=== PATIENT | female | born 1970 | race Caucasian/White ===

== ENCOUNTER 2021-02-14 08:12 | Day surgery (SDC) | payer MEDICAID ==
[~2021-02-14] VITALS: Ht 170.2 cm; Wt 100.0 kg
[2021-02-14 08:10] VITALS: BP 143/81
[~2021-02-14 08:12] MED LIST: ARIP400S3 IM; MIDAZolam 1 MG/ML 5ML VIAL ONE; PALI234D IM; TEMA30CA5 PO; fentaNYL/PF 50MCG/1 ML 2ML syringe ONE
[2021-02-14] MEDS ORDERED: LORA10TA7 PO (08:15)
[2021-02-14] MEDS ORDERED: MULT-1085 PO (08:16)
[2021-02-14] MEDS ORDERED: CLOZ100T21 PO (08:18)
[2021-02-14] MEDS ORDERED: DOCU250C16 PO (08:21)
[2021-02-14] MEDS ORDERED: CITA20TA27 PO (08:23)
[2021-02-14] MEDS ORDERED: OXYB5TAB16 PO (08:23)
[2021-02-14] MEDS ORDERED: AZEL6DRO5 EACHEYE (08:27)
[2021-02-14] MEDS ORDERED: IBUP-1984 PO (08:29)
[2021-02-14] MEDS ORDERED: ACET-2119 PO (08:29)
[2021-02-14] MEDS ORDERED: CALC500T11 PO (08:30)
[2021-02-14] MEDS ORDERED: HYDR-3686 PO (08:31)
[2021-02-14] MEDS ORDERED: POLY17PO59 PO (08:32)
[2021-02-14] MEDS ORDERED: FAMO-128 PO (08:33)
[2021-02-14 10:04] VITALS: BP 143/72
[2021-02-14 10:14] VITALS: BP 138/71
[2021-02-14 10:24] VITALS: BP 135/85
[2021-02-14 10:34] VITALS: BP 146/73
== END 2021-02-14 10:50 | disposition home or self-care (01) ==
LOC: GI LAB 08:12
PROVIDERS: ATTEND Internal Medicine Gastroenterology
DX: R19.5 Other fecal abnormalities (principal); K63.89 Other specified diseases of intestine; K56.2 Volvulus; K64.8 Other hemorrhoids; K63.5 Polyp of colon; K62.1 Rectal polyp; F17.210 Nicotine dependence, cigarettes, uncomplicated; Z79.899 Other long term (current) drug therapy; Z80.0 Family history of malignant neoplasm of digestive organs
CPT/HCPCS: 45380; 45385; 99152; 99153; C1773; J2250; J3010; J7040; Z7512; A4620

== ENCOUNTER 2023-02-15 04:23 | Emergency (ER) | payer MEDICAID ==
[~2023-02-15] VITALS: Ht 170.2 cm; Wt 71.4 kg
[~2023-02-15 04:23] MED LIST changes: +ACET-1084 PO; +ALBU17AE26 PO; -ARIP400S3 IM; +ATOR40TA72 PO; +CALC500T12 PO; +CHOL20003 PO; +CITA20TA27 PO; +CLOZ200T8 PO; +CLOZ50TA9 PO; +DEC4T PO; +DOCU100C40 PO; +FAMO-128 PO; +HYDR-3686 PO; +IBUP-1984 PO; +LISI10TA27 PO; +LORA10TA7 PO; -MIDAZolam 1 MG/ML 5ML VIAL ONE; +OXYB5TAB16 PO; -PALI234D IM; +POLY510P31 PO; -TEMA30CA5 PO; -fentaNYL/PF 50MCG/1 ML 2ML syringe ONE
--- NOTE | 2023-02-15 06:08 | NUR ---
CALL PLACED TO [facility] WHERE PT STATES SHE LIVES. STAFF MEMBER AT [facility] STATES THAT SHE IS THE ONLY STAFF MEMBER ON SITE AND THAT SHE DOESN'T KNOW HOW THE PATIENT CAN GET HOME. CALL PLACED TO [facility], [facility] DOES NOT HAVE AN EXISTING RELATIONSHIP WITH EITHER THE PATIENT OR THE FACILITY. PER [facility] STAFF MEMBER, THERE WOULD BE SOMEONE TO HELP PATIENT INTO THE HOUSE IF [facility] SENDS HER HOME BY CAB. THIS RN REQUESTED THAT THE STAFF MEMBER CONTACT HER INSTRUMENT SPECIALIST TO FIND OUT WHAT PROCEDURE IS FOR SENDING PATIENTS HOME FROM THE HOSPITAL.
[2023-02-15 06:12] LABS: ALANINE AMINOTRANSFERASE 322 U/L (12-78); ALBUMIN 2.6 G/DL (3.4-5.0); ALBUMIN/GLOBULIN RATIO 0.8 (1.1-1.5); ALKALINE PHOSPHATASE 328 IU/L (46-116); ANION GAP 13 (8-16); ASPARTATE AMINO TRANSFERASE 211 U/L (10-37); BILIRUBIN,TOTAL 1.6 MG/DL (0.1-1.0); BLOOD UREA NITROGEN 44 MG/DL (7-18); BUN/CREATININE RATIO 33.1 (10.0-20.0); CALCIUM 9.8 MG/DL (8.5-10.1); CHLORIDE 100 MMOL/L (99-107); CREATININE 1.33 MG/DL (0.40-0.90); GLUCOSE 94 MG/DL (70-104); POTASSIUM 4.8 MMOL/L (3.5-5.1); SODIUM 135 MMOL/L (135-145); TOTAL CARBON DIOXIDE 22.4 MMOL/L (24-32); eCRCL 48 ML/MIN; eGFR 42 ML/MIN
--- NOTE | 2023-02-15 06:12 | NUR ---
SPOKE WITH STAFF AT [facility] AGA[facility]. THEY STATE THAT THEY WILL HAVE SOMEONE COME TO PICK PATIENT UP SOON THEY CAN. WHEN ASKED FOR AN ETA, STAFF MEMBER WAS UNABLE TO PROVIDE THIS INFORMATION.
[2023-02-15] MEDS ORDERED: normal saline 1000ml 1,000 ML IV ONE (06:30)
[2023-02-15 06:56] LABS: CREATINE KINASE 39 U/L (26-192)
[2023-02-15 08:14] LABS: BASOPHILS % (AUTO) 0.3 % (0-1); EOSINOPHILS % (AUTO) 0.2 % (0-6); HEMOGLOBIN 13.3 g/dl (12.0-16.0); LYMPHOCYTES # (AUTO) 0.5 X10'3 (1.1-4.8); MEAN CORPUSCULAR HEMOGLOBIN 32.4 PG (27.0-31.0); MEAN CORPUSCULAR HGB CONC 33.3 g/dL (33.0-36.5); MEAN CORPUSCULAR VOLUME 97.3 FL (78-98); MEAN PLATELET VOLUME 10.2 FL (7.4-10.4); MONOCYTES # (AUTO) 0.4 X10'3 (0-0.9); MONOCYTES % (AUTO) 3.3 % (2-12); NEUTROPHILS # (AUTO) 12.4 X10'3 (1.8-7.7); NEUTROPHILS % (AUTO) 92.2 % (42-75); RED BLOOD COUNT 4.11 X10'6 (4.20-5.60); RED CELL DISTRIBUTION WIDTH 16.2 % (11.5-14.5); WHITE BLOOD COUNT 13.5 X10'3 (4.5-11.0)
[2023-02-15 08:28] LABS: PLATELET COUNT 50 X10'3 (140-440)
[2023-02-15] MEDS ORDERED: normal saline 1000ML IV soln IVB ONE (08:30)
[2023-02-15 08:33] LABS: ANISOCYTOSIS 1+; PLATELET ESTIMATE DECREASED; TOTAL CELLS COUNTED 100
[2023-02-15 08:34] LABS: SCHISTOCYTES FEW
[2023-02-15] MEDS ORDERED: levoFLOXACIN-Levaquin 500mg/D5 100 ML IV ONE (08:40)
[2023-02-15 11:32] VITALS: PULSE 96
[2023-02-15 11:40] LABS: BILIRUBIN,URINE MODERATE (Neg); CLARITY,URINE TURBID (Clear); COLOR,URINE YELLOW (Yellow); GLUCOSE, URINE NEGATIVE (Neg); KETONES,URINE 15 mg/dl (Neg); LEUKOCYTE ESTERASE ,URINE TRACE (Neg); NITRITES, URINE POSITIVE (Neg); OCCULT BLOOD,URINE NEGATIVE (Neg); PROTEIN,URINE 30 mg/dl (Neg)
[2023-02-15 11:48] LABS: TRIPLE PHOSPHATE CRYST 4+ /HPF (NEGATIVE); UA COLLECTION TYPE STRAIGHT CATH
[2023-02-15 11:50] LABS: BACTERIA,URINE 4+ /HPF (Neg); RBC,URINE 0-2 /HPF (0-2); SQUAMOUS EPITHELIAL CELL,UR NONE SEEN /LPF (FEW)
[2023-02-15] MEDS ORDERED: LEVO250T74 PO (11:57)
[2023-02-15 12:09] VITALS: BP 108/63; RESP 22; TEMP 98.4; O2SAT 93
== END 2023-02-15 12:10 | disposition home or self-care (01) ==
LOC: ER 04:23
DX: S09.90XA Unspecified injury of head, initial encounter (principal); N39.0 Urinary tract infection, site not specified; R53.1 Weakness; E78.00 Pure hypercholesterolemia, unspecified; I10 Essential (primary) hypertension; E11.9 Type 2 diabetes mellitus without complications; F15.90 Other stimulant use, unspecified, uncomplicated; Z72.89 Other problems related to lifestyle; Z88.1 Allergy status to other antibiotic agents; Z88.8 Allergy status to other drugs, medicaments and biological substances; Z79.899 Other long term (current) drug therapy; Z79.2 Long term (current) use of antibiotics; W19.XXXA Unspecified fall, initial encounter; Y93.89 Activity, other specified; Y92.89 Other specified places as the place of occurrence of the external cause
CPT/HCPCS: 36415; 70450; 71045; 74176; 80053; 81001; 82550; 84145; 84484; 85007; 85025; 87077; 87088; 87186; 96361; 96365; 96366; 99285; J1956; J7030; A4353